=== PATIENT | male | born 1960 | race Caucasian/White ===

== ENCOUNTER 2021-01-29 17:18 | Emergency (ER) | payer OTHER, SELFPAY ==
[2021-01-29] VITALS (32 sets, daily range): BP systolic 127–150; BP diastolic 65–81; PULSE 59–72; RESP 10–20; TEMP 36.8; O2SAT 97–100
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
[2021-01-29 17:50] LABS: Abs Immature Grans 0.02 10^3/uL (0.0-0.06); Absolute Basophil Count 0.03 10^3/uL (0.0-0.2); Absolute Eosinophil Count 0.09 10^3/uL (0.0-0.7); Absolute Monocyte Count 0.82 10^3/uL (0.1-0.8); Absolute Neutrophil Count 4.97 10^3/uL (1.2-6.7); Basophils % 0.4; Eosinophils % 1.3; HCT 41.7 % (40.0-50.0); HGB 14.3 g/dL (13.5-17.5); Immature Grans % 0.3; Lymphocytes % 15.6; MCH 29.5 pg (27.0-33.0); MCHC 34.3 % (32.0-36.0); MCV 86.2 fL (80-95); MPV 10.1 fL (8.0-11.0); Monocytes % 11.7; Neutrophils % 70.7; Nucleated RBC 0 %; Platelet Count 192 10^3/uL (130-400); RBC 4.84 10^6/uL (4.36-5.78); RDW 12.5 % (11.8-14.1); RDW-SD 39.3 fL; WBC 7.03 10^3/uL (4.4-10.8)
[2021-01-29 18:19] LABS: INR 1.1 (0.9-1.1); Prothrombin Time 10.8 sec (9.3-11.0)
[2021-01-29 18:24] LABS: ALT 49 U/L (16-63); AST 47 U/L (15-37); Albumin 3.7 g/dL (3.4-5.0); Alkaline Phosphatase 104 U/L (46-116); Anion Gap 10.5 mmol/L (3-11); BUN 29 mg/dL (7-18); Bilirubin, Total 0.4 mg/dL (0.2-1.0); CO2 25.5 mmol/L (21.0-32.0); CREATININE 1.4 mg/dL (0.70-1.30); Chloride 105 mmol/L (98-107); Estimated GFR 52.05 (mL/min/1.73m2); Glucose 108 mg/dL (74-106); Lipase 128 U/L (73-393); Potassium 3.5 mmol/L (3.5-5.1); Sodium 141 mmol/L (136-145); Total Protein 7.3 g/dL (6.4-8.2)
--- NOTE | 2021-01-29 19:26 | DI.VRAD_ITS ---
Addendum created by Cassandra Diaz MD on 01/29/2021 7:28:13 PM EDT: THIS REPORT CONTAINS FINDINGS THAT MAY BE CRITICAL TO PATIENT CARE. The pertinent findings were verbally communicated via telephone conference with Dr. Marcelino Renae at 19:28 EDT on 01/29/2021. The findings were acknowledged and understood. Initial report created on 01/29/2021 7:25:54 PM EDT: PROCEDURE INFORMATION: Exam: CT Head Without Contrast Exam date and time: 01/29/2021 17:34 Age: 60 years old Clinical indication: Other: Trauma, loc TECHNIQUE: Imaging protocol: Computed tomography of the head without contrast. Radiation optimization: All CT scans at this facility use at least one of these dose optimization techniques: automated exposure control; mA and/or kV adjustment per patient size (includes targeted exams where dose is matched to clinical indication); or iterative reconstruction. COMPARISON: No relevant prior studies available. FINDINGS: Brain: Tiny, subcentimeter focus left frontal acute hemorrhage, favor subarachnoid over parenchyma. No parenchymal hemorrhage. No significant edema. No midline shift. Cerebral ventricles: No ventriculomegaly. Bones/joints: No acute fracture. Paranasal sinuses: No acute sinusitis. Mastoid air cells: No mastoid effusion. Soft tissues: No suspicious lesions. IMPRESSION: Tiny, subcentimeter focus left frontal subarachnoid hemorrhage, favor subarachnoid over parenchymal. PROCEDURE INFORMATION: Exam: CT Cervical Spine Without Contrast Exam date and time: 01/29/2021 17:34 Age: 60 years old Clinical indication: Other: Trauma, loc TECHNIQUE: Imaging protocol: Computed tomography images of the cervical spine without contrast. Radiation optimization: All CT scans at this facility use at least one of these dose optimization techniques: automated exposure control; mA and/or kV adjustment per patient size (includes targeted exams where dose is matched to clinical indication); or iterative reconstruction. COMPARISON: No relevant prior studies available. FINDINGS: Bones/joints: No acute fracture or subluxation. Discs/Spinal canal/Neural foramina: Multilevel degenerative changes including disc space narrowing and uncovertebral hypertrophy. Posterior disc osteophyte complexes contribute to mild multilevel neural foraminal greater than central canal stenosis. Lungs: No consolidation. Soft tissues: No suspicious lesions. IMPRESSION: No cervical spine fracture. Dictated and Authenticated by: Cassandra Diaz MD. Ordering:DWIGHT Arzola MD
--- NOTE | 2021-01-29 19:34 | NUR.NOTE ---
Nursing Note: HOB 30 degrees per EDP
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
--- NOTE | 2021-01-29 19:45 | DI.RAD_ITS ---
EXAM: XR PELVIS AP CLINICAL HISTORY: trauma. TECHNIQUE: 2D digital imaging was performed. COMPARISON: No exams were available for comparison FINDINGS: No evidence of fracture nor diastasis of the symphysis pubis and sacroiliac joints. No obvious acute hip fractures. IMPRESSION: No fractures evident on this single AP portable view of the pelvis DATA REPOSITORY: RADIATION DOSE DELIVERED:
--- NOTE | 2021-01-29 19:45 | DI.RAD_ITS ---
EXAM: XR PORTABLE CHEST AP CLINICAL HISTORY: trauma. TECHNIQUE: 2D digital imaging was performed. COMPARISON: No exams were available for comparison FINDINGS: Heart size is normal. The mediastinum is not widened. Lungs are clear. No infiltrates nor obvious pleural effusions. Multiple healed left-sided rib fractures are noted. No obvious acute fractures. No pneumothorax. IMPRESSION: No acute pulmonary findings on this single AP portable view of the chest. DATA REPOSITORY: RADIATION DOSE DELIVERED:
[2021-01-29] MEDS: levETIRAcetam 1,000 MG in Normal Saline 100 ML 400 MG IVPB (19:47)
--- NOTE | 2021-01-29 20:34 | DI.VRAD_ITS ---
PROCEDURE INFORMATION: Exam: XR Pelvis Exam date and time: 01/29/2021 19:59 Age: 60 years old Clinical indication: Other: Trauma TECHNIQUE: Imaging protocol: XR pelvis. Views: 1 or 2 view. COMPARISON: No relevant prior studies available. FINDINGS: Bones/joints: No acute fracture or subluxation. Benign-appearing enthesophyte adjacent to the right femoral lesser trochanter. Soft tissues: Unremarkable. Vasculature: Benign pelvic phleboliths. IMPRESSION: No acute bony pathology. Dictated and Authenticated by: Cassandra Diaz MD. Ordering:ALEXIS Benson MD
--- NOTE | 2021-01-29 20:37 | DI.VRAD_ITS ---
PROCEDURE INFORMATION: Exam: XR Chest Exam date and time: 01/29/2021 19:59 Age: 60 years old Clinical indication: Other: Trauma TECHNIQUE: Imaging protocol: XR of the chest Views: 1 view. COMPARISON: No relevant prior studies available. FINDINGS: Lungs: No consolidation. Pleural spaces: No pleural effusion. No pneumothorax. Heart/Mediastinum: No cardiomegaly. Bones/joints: Chronic left-sided rib fractures. No acute fracture is seen. IMPRESSION: Negative portable chest. Dictated and Authenticated by: Cassandra Diaz MD. Ordering:ALEXIS Benson MD
== END 2021-01-29 20:27 | disposition short-term general hospital (02) ==
PROVIDERS: Emergency Provider Registered Nurse Emergency
DX: S06.369A Traumatic hemorrhage of cerebrum, unspecified, with loss of consciousness of unspecified duration, initial encounter (principal); S80.222A Blister (nonthermal), left knee, initial encounter; S60.222A Contusion of left hand, initial encounter; V43.02XA Car driver injured in collision with other type car in nontraffic accident, initial encounter
CPT/HCPCS: 36415; 80053; 83690; 86850; 86900; 86901; 96365; 99291; 70450; 71045; 72125; 72170; 73130; 73560; 85025; 85610; J1953